=== PATIENT | female | born 1995 | race Caucasian/White ===

== ENCOUNTER 2016-10-20 09:35 | Outpatient (CLI) | payer OTHER | END 2016-10-20 09:36 | disposition critical access hospital (66) | DX: R45.851 Suicidal ideations (principal) | CPT/HCPCS: A0425; A0429 ==

== ENCOUNTER 2016-10-20 09:55 | Emergency (ER) | payer OTHER ==
[2016-10-20] MEDS ORDERED: IBUPROFEN 600 MG TABLET PO STA (10:55)
[2016-10-20] MEDS ORDERED: IBUPROFEN 600 MG TABLET PO ONE (11:01)
== END 2016-10-20 19:27 | disposition home or self-care (01) ==
DX: F32.9 Major depressive disorder, single episode, unspecified (principal); R45.851 Suicidal ideations
CPT/HCPCS: 36415; 80053; 80306; 80307; 80320; 80329; 81001; 81025; 83690; 84443; 85025; 99283; 99284; A9270